=== PATIENT | female | born 1955 | race Caucasian/White ===

== ENCOUNTER 2020-11-25 10:43 | Emergency (ER) | payer OTHER ==
[~2020-11-25] VITALS: Ht 152.4 cm; Wt 74.0 kg
[2020-11-25] MEDS ORDERED: FAMOTIDINE 20 MG/2 ML VIAL IV STA (11:05)
[2020-11-25] MEDS ORDERED: DIPHENHYDRAMINE HCL INJ 50 MG/ML VIAL IV ONE (11:15)
[2020-11-25] MEDS ORDERED: METHYLPREDNISOLONE SOD SUCC 125 MG/2ML VIAL IV ONE (11:15)
[2020-11-25] MEDS ORDERED: EPINEPHRINE HCL 1:1000 1ML 1 MG/ML AMP SQ ONE (11:15)
[2020-11-25] MEDS ORDERED: METHYLPREDNISOLONE SOD SUCC 125 MG/2ML VIAL ONE (11:38)
[2020-11-25] MEDS ORDERED: EPINEPHRINE HCL 1:1000 1ML 1 MG/ML AMP ONE (11:38)
[2020-11-25] MEDS ORDERED: FAMOTIDINE 20 MG/2 ML VIAL IV ONE (11:39)
[2020-11-25] MEDS ORDERED: DIPHENHYDRAMINE HCL INJ 50 MG/ML VIAL ONE (11:39)
[2020-11-25 12:22] VITALS: BP 157/80
== END 2020-11-25 12:22 | disposition home or self-care (01) ==
LOC: FSED 11:08
DX: R21 Rash and other nonspecific skin eruption (principal); T78.40XA Allergy, unspecified, initial encounter; I10 Essential (primary) hypertension
CPT/HCPCS: 96372; 96374; 96375; 96376; 99283; J0171; J1200; J2930